=== PATIENT | female | born 1945 | race Caucasian/White ===

== ENCOUNTER 2017-01-18 19:33 | Emergency (ER) | payer MEDICARE, BC ==
[2017-01-18 20:53] VITALS: BP 159/71
[2017-01-18] MEDS ORDERED: Doxycycline 100 MG Cap PO ONE (21:16)
--- NOTE | 2017-01-18 21:18 | EDM.PDOC ---
[id number]: DEER TICK Time Seen by Provider: 01/18/17 21:00 Source of Information: Reports: Patient History Limitations: Reports: No Limitations - History of Present Illness INITIAL COMMENTS - FREE TEXT/NARRATIVE: 71-year-old female found a tick on her right lateral abdomen this evening, tried to remove it but the head is still attached and there is a small amount of redness. She's had Lyme's disease "twice" and is very concerned. Onset: Today - Related Data Allergies Allergy/AdvReac Type Severity Reaction Status Date / Time tetanus toxoid, adsorbed Allergy Cannot Verified 06/13/14 11:30 Remember lisinopril AdvReac Cough Verified 06/13/14 13:42 Home Meds: Home Meds Acetaminophen 650 mg PO DAILY PRN 06/10/14 [History] Alendronate [Fosamax] 70 mg PO Q7D 06/10/14 [History] Aspirin [Halfprin] 1 tab PO DAILY 06/10/14 [History] Metoprolol Succinate [Toprol XL] 25 mg PO DAILY 06/10/14 [History] Nitroglycerin [Nitrostat] 0.4 mg SL ASDIRECTED 06/10/14 [History] atorvaSTATin [Lipitor] 20 mg PO BEDTIME 06/10/14 [History] Propylene Glycol [Systane Balance] 1 - 2 drop EYEBOTH DAILY PRN 06/13/14 [ History] Calcium Carbonate [Tums] 1,000 mg PO Q6HR #100 tab.chew 06/15/14 [Rx] Past Medical History HEENT History: Reports: Other (See Below) Other HEENT History: dry eyes Cardiovascular History: Reports: Hypertension, Stents Gastrointestinal History: Reports: PUD, Other (See Below) Other Gastrointestinal History: perforated ulcer 1995 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: Musculoskeletal History: Reports: Fracture Other Musculoskeletal History: fx bilateral wrists Endocrine/Metabolic History: Reports: Hyperparathyroidism, Other (See Below) Other Endocrine/Metabolic History: removed parathyroid - Infectious Disease History Infectious Disease History: Reports: Chicken Pox, Measles, Mumps - Past Surgical History Cardiovascular Surgical History: Reports: Coronary Artery Stent Social & Family History - Tobacco Use Smoking Status *Q: Never Smoker Years of Tobacco use: 4 Used Tobacco, but Quit: Yes Month Tobacco Last Used: 0 Second Hand Smoke Exposure: No - Caffeine Use Caffeine Use: Reports: None - Alcohol Use Days Per Week of Alcohol Use: 1 Number of Drinks Per Day: 1 Total Drinks Per Week: 1 - Recreational Drug Use Recreational Drug Use: No ED ROS GENERAL - Review of Systems Review Of Systems: See Below Constitutional: Denies: Fever, Chills Respiratory: Denies: Shortness of Breath, Cough Cardiovascular: Denies: Chest Pain GI/Abdominal: Denies: Nausea Skin: Reports: Wound (Bite wound from the tick with a small amount of redness) Neurological: Reports: No Symptoms Psychiatric: Reports: No Symptoms ED EXAM, ANIMAL BITE - Physical Exam Exam: See Below Exam Limited By: No Limitations General Appearance: Alert, No Apparent Distress Respiratory/Chest: No Respiratory Distress Neurological: Alert, Oriented Skin Exam: Other (Patient has a small remainder of the tick embedded in her right lateral abdomen over a small erythematous spot) Course - Vital Signs Last Recorded V/S: Last Vital Signs Temp 96.8 F 01/18/17 20:51 Pulse 84 01/18/17 20:51 Resp 16 01/18/17 20:51 BP 159/71 H 01/18/17 20:51 Pulse Ox 95 01/18/17 20:51 - Orders/Labs/Meds Meds: Medications Discontinued Medications Generic Name Dose Route Start Last Admin Trade Name Gregoryq PRN Reason Stop Dose Admin Doxycycline Hyclate 200 mg 01/18/17 21:16 01/18/17 21:21 Vibramycin PO 01/18/17 21:17 200 mg ONETIME ONE Administration - Re-Assessments/Exams Free Text/Narrative Re-Assessment/Exam: 01/18/17 21:16 Bruising of fine tweezers the remainder of the tick was removed. Patient was given 200 mg of by mouth doxycycline but no further treatment is needed. She can return as needed if concerns. Departure - Departure Time of Disposition: 21:26 Disposition: Home, Self-Care 01 Condition: good Clinical Impression: Tick bite of abdomen Qualifiers: Encounter type: initial encounter Qualified Code(s): S30.861A - Insect bite ( nonvenomous) of abdominal wall, initial encounter - Discharge Information Instructions: Insect Bite, [id number] Referrals: Saba Jacobs [employer] [Primary Care Provider] - Forms: ED Department Discharge Care Plan Goals: Keep area clean while healing. You may experience an increase in redness temporarily, return if concerns of not healing satisfactorily.
== END 2017-01-18 21:27 | disposition home or self-care (01) ==
LOC: JP.ED 19:33
DX: S30.861A Insect bite (nonvenomous) of abdominal wall, initial encounter (principal); I10 Essential (primary) hypertension; E21.3 Hyperparathyroidism, unspecified; Z95.5 Presence of coronary angioplasty implant and graft; Z79.82 Long term (current) use of aspirin; Z79.899 Other long term (current) drug therapy; Z88.8 Allergy status to other drugs, medicaments and biological substances; W57.XXXA Bitten or stung by nonvenomous insect and other nonvenomous arthropods, initial encounter
CPT/HCPCS: 99283; A9270

== ENCOUNTER 2017-05-19 05:51 | Day surgery (SDC) | payer MEDICARE, BC ==
[2017-05-19] MEDS ORDERED: Dextrose 5%-Lactated Ringers 1,000 ML IV SCH (06:30)
[2017-05-19] MEDS ORDERED: Glycopyrrolate 0.2 MG/ML 2 ML SDV IVPUSH ONE (07:15)
[2017-05-19] MEDS ORDERED: Propofol 200 MG/20 ML SDV ONE (07:19)
[2017-05-19] MEDS ORDERED: fentaNYL 100 MCG/2 ML SDV ONE (07:20)
[2017-05-19] MEDS ORDERED: Midazolam 1 MG/ML 2 ML SDV ONE (07:20)
[2017-05-19] MEDS ORDERED: Pantoprazole 40 MG Vial IVPUSH ONE (08:00)
[2017-05-19 09:51] VITALS: BP 118/79
--- NOTE | 2017-05-24 16:00 | OR ---
DATE OF PROCEDURE: 05/19/2017 PREOPERATIVE DIAGNOSES: 1. Irritation referable to hypopharynx. 2. Indication for screening colonoscopy. POSTOPERATIVE DIAGNOSES: 1. Throat irritation associated with normal hypopharynx and larynx. 2. Gastroesophageal reflux disease (single linear ulcer at the EG junction). 3. Mild duodenitis. 4. Normal colonoscopic examination. OPERATIVE PROCEDURE: 1. Esophagogastroduodenoscopy with:. a. Biopsies of antrum for CLOtest. b. Biopsies of esophagogastric junction for histologic evaluation. 2. Colonoscopy. ANESTHESIA: IV sedation. INDICATIONS FOR PROCEDURE: A 72-year-old presenting with some ongoing sense of irritation in the hypopharyngeal area, was not associated with dysphagia per se. She does not report obvious gastroesophageal reflux symptoms and is not on any antisecretory medications. The patient also meets indications for screening colonoscopy. Plan is to proceed with an upper and lower endoscopy with biopsies and/or polypectomies as indicated. Potential risks including bleeding and perforation were discussed and the patient wishes to proceed. DETAILS OF PROCEDURE: The patient was taken to the operating room and placed in a left lateral decubitus position. IV sedation was administered after which the upper GI endoscope was passed orally through the length of the esophagus into the stomach with retroflexion view of the fundus, thereafter through the pyloric channel and into the proximal duodenum. Findings included a normal hypopharynx and larynx and upper esophageal sphincter. Esophageal body was likewise unremarkable. At the EG junction, there was a small hiatal hernia. There was some inflammation and friability and a single thin linear ulcer present all consistent with gastroesophageal reflux disease. There was no stricturing, plaquing, or other signs of neoplasia. Within the stomach, apart from the small hiatal hernia, proximal stomach was unremarkable. There was some mild redness within the duodenum which extended just to the length of the duodenal bulb, the remainder of the duodenum being unremarkable. The scope was then withdrawn back into the abdomen. Biopsies were obtained from the antrum and sent for CLOtest for H. pylori and then multiple biopsies were obtained from esophagogastric junction, sent for histologic evaluation. Minimal bleeding from the biopsy sites was seen. Of note, there was no gross upward extension of the gastroesophageal junction, mucosal line, i.e. no gross evidence of Goldman esophagus. The scope was withdrawn and the upper endoscopic procedure was then concluded. The patient was then prepared for the colonoscopy. Initial digital rectal exam was performed and was unremarkable. Colonoscope was then passed into the rectum with retroflexion revealing uncomplicated hemorrhoidal columns. The scope was then passed eventually to the level of the cecum. The prep was fairly good with there only being a small amount of liquid stool present. To that level, no abnormalities were noted. Specifically, there were no areas of diverticulosis, no areas of colitis, and no polyps or other signs of neoplasia. The scope was then withdrawn, the above findings reconfirmed, and the procedure concluded. The patient was taken to the recovery room in satisfactory condition. The plan will be to give the patient Protonix 40 mg IV in the recovery room and then begin Protonix 40 mg a day. She will be then set up to see KIET Hardwick in roughly 1 month to see if the treatment of gastroesophageal reflux disease helps with throat irritation. If no significant improvement is noted, one might consider ENT referral at that time. Marc Velazquez MD /[id number]
== END 2017-05-19 10:40 | disposition home or self-care (01) ==
LOC: JP.SDS 05:51
PROVIDERS: ATTEND Surgery
DX: Z12.11 Encounter for screening for malignant neoplasm of colon (principal); K29.80 Duodenitis without bleeding; K44.9 Diaphragmatic hernia without obstruction or gangrene; K21.9 Gastro-esophageal reflux disease without esophagitis; Z88.8 Allergy status to other drugs, medicaments and biological substances
CPT/HCPCS: 43239; 87081; 88305; C9113; G0121; J2250; J2704; J3010; J7042; J3490

== ENCOUNTER 2017-07-06 10:19 | Emergency (ER) | payer MEDICARE, BC ==
[2017-07-06 13:08] VITALS: BP 147/106
--- NOTE | 2017-07-06 13:52 | EDM.PDOC ---
ED HPI GENERAL MEDICAL PROBLEM - General Chief Complaint: Abdominal Pain Stated Complaint: LEFT SIDE PAIN AND GOES INTO BACK Time Seen by Provider: 07/06/17 10:55 Source of Information: Reports: Patient History Limitations: Reports: No Limitations - History of Present Illness INITIAL COMMENTS - FREE TEXT/NARRATIVE: PT DEVELOPED ACUTE PAIN IN THE LEFT LOWER ABDOMAN. sHE HAD A NORMAL BM YESTERDAY NON TODAY. sHE HAS NOT VOMITED. tHE PAIN DOES RADIATE TO HER FLANK AREA. sHE DID HAVE A COLONOSCOPY 2 WEEKS AGO. sHE STATES SHE WAS TOLD THIS WAS OK. Onset: Gradual, Other ( STARTED SOME YESTERDAY WORSE TODAY. iT IS NOT REAL TENDER WHEN IT IS PUSHED ON. sHE HAS NO DYSURIA. ) Duration: Hour(s): Location: Reports: Abdomen Associated Symptoms: Reports: Other ( NO OTHER SYMPTOMS) Left Lower Abdominal Pain Score (Numeric/FACES): 6 - Related Data Allergies Allergy/AdvReac Type Severity Reaction Status Date / Time tetanus toxoid, adsorbed Allergy Cannot Verified 05/19/17 06:06 Remember lisinopril AdvReac Cough Verified 05/19/17 06:06 Home Meds: Home Meds Acetaminophen 650 mg PO DAILY PRN 06/10/14 [History] Alendronate [Fosamax] 70 mg PO Q7D 06/10/14 [History] Aspirin [Halfprin] 81 mg PO DAILY 06/10/14 [History] Metoprolol Succinate [Toprol XL] 25 mg PO DAILY 06/10/14 [History] Nitroglycerin [Nitrostat] 0.4 mg SL ASDIRECTED 06/10/14 [History] atorvaSTATin [Lipitor] 20 mg PO BEDTIME 06/10/14 [History] Propylene Glycol [Systane Balance] 1 - 2 drop EYEBOTH DAILY PRN 06/13/14 [ History] Calcium Carbonate [Tums] 1,000 mg PO Q6HR #100 tab.chew 06/15/14 [Rx] Cholecalciferol (Vitamin D3) [Vitamin D3] 5,000 unit PO DAILY 05/15/17 [History] Multivitamin [Multiple Vitamins] 1 tab PO DAILY 05/15/17 [History] Past Medical History HEENT History: Reports: Other (See Below) Other HEENT History: dry eyes Cardiovascular History: Reports: Hypertension, Stents Gastrointestinal History: Reports: PUD, Other (See Below) Other Gastrointestinal History: perforated ulcer 1995 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: Musculoskeletal History: Reports: Fracture Other Musculoskeletal History: fx bilateral wrists Endocrine/Metabolic History: Reports: Hyperparathyroidism, Other (See Below) Other Endocrine/Metabolic History: removed parathyroid - Infectious Disease History Infectious Disease History: Reports: Chicken Pox, Mumps - Past Surgical History Cardiovascular Surgical History: Reports: Coronary Artery Stent GI Surgical History: Reports: Colonoscopy Social & Family History - Family History Family Medical History: Noncontributory - Tobacco Use Smoking Status *Q: Never Smoker Years of Tobacco use: 4 Used Tobacco, but Quit: Yes Month Tobacco Last Used: 0 Second Hand Smoke Exposure: No - Caffeine Use Caffeine Use: Reports: None - Alcohol Use Days Per Week of Alcohol Use: 1 Number of Drinks Per Day: 1 Total Drinks Per Week: 1 - Recreational Drug Use Recreational Drug Use: No ED ROS GENERAL - Review of Systems Review Of Systems: See Below Constitutional: Reports: No Symptoms HEENT: Reports: No Symptoms Respiratory: Reports: No Symptoms Cardiovascular: Reports: No Symptoms Endocrine: Reports: No Symptoms GI/Abdominal: Reports: Abdominal Pain, Other (PT STATES SHE IS NOT VERY UNCOMFORTABLE WHEN SHE IS PUSHED ON. ) : Reports: No Symptoms, Flank Pain Musculoskeletal: Reports: No Symptoms Skin: Reports: No Symptoms Neurological: Reports: No Symptoms ED EXAM, GI/ABD - Physical Exam Exam: See Below Text/Narrative:: pt has had left sided abdomanal pain which has been waxing and waning. sHe had a neg colonoscopy 2 weeks ago. Pt is not nauseated and she has been having normal bms. She has not fallen or injured herself. Exam Limited By: No Limitations General Appearance: Alert, Mild Distress Ears: Normal TMs Nose: Normal Inspection Throat/Mouth: Normal Inspection Head: Atraumatic Neck: Normal Inspection Respiratory/Chest: No Respiratory Distress Cardiovascular: Regular Rate, Rhythm GI/Abdominal Exam: Soft, Other (pt has cva tenderness. She is very tender in the muscle in the lrft cva area. ) (Female) Exam: Deferred Rectal (Female) Exam: Deferred Back Exam: Normal Inspection Extremities: Normal Inspection Course - Vital Signs Last Recorded V/S: Last Vital Signs Temp 36.5 C 07/06/17 10:54 Pulse 82 07/06/17 12:45 Resp 16 07/06/17 12:45 BP 147/106 H 07/06/17 12:45 Pulse Ox 98 07/06/17 12:45 - Orders/Labs/Meds Labs: Laboratory Tests 07/06/17 07/06/17 07/06/17 Range/Units 13:13 13:13 13:47 WBC 6.8 (4.5-11.0) K/uL RBC 4.68 (3.30-5.50) M/uL Hgb 14.6 (12.0-15.0) g/dL Hct 43.4 (36.0-48.0) % MCV 93 (80-98) fL MCH 31 (27-31) pg MCHC 34 (32-36) % Plt Count 274 (150-400) K/uL Neut % (Auto) 58 (36-66) % Lymph % (Auto) 31 (24-44) % Mckenzie % (Auto) 8 H (2-6) % Eos % (Auto) 2 (2-4) % Baso % (Auto) 1 (0-1) % Sodium 139 L (140-148) mmol/L Potassium 4.6 (3.6-5.2) mmol/L Chloride 105 (100-108) mmol/L Carbon Dioxide 27 (21-32) mmol/L Anion Gap 11.6 (5.0-14.0) mmol/L BUN 19 H (7-18) mg/dL Creatinine 1.1 H (0.6-1.0) mg/dL Est Cr Clr Drug Dosing 38.80 mL/min Estimated GFR (MDRD) 49 L (>60) Glucose 100 (74-106) mg/dL Calcium 9.3 (8.5-10.1) mg/dL Total Bilirubin 0.9 (0.2-1.0) mg/dL AST 19 (15-37) U/L ALT 25 (12-78) U/L Alkaline Phosphatase 58 (46-116) U/L Total Protein 7.1 (6.4-8.2) g/dL Albumin 4.0 (3.4-5.0) g/dL Globulin 3.1 (2.3-3.5) g/dL Albumin/Globulin Ratio 1.3 (1.2-2.2) Urine Color Yellow Urine Appearance Clear Urine pH 6.5 (4.5-8.0) Ur Specific [place] 1.005 L (1.008-1.030) Urine Protein Negative (NEGATIVE) mg/dL Urine Glucose (UA) Normal (NEGATIVE) mg/dL Urine Ketones Negative (NEGATIVE) mg/dL Urine Occult Blood Negative (NEGATIVE) Urine Nitrite Negative (NEGATIVE) Urine Bilirubin Negative (NEGATIVE) Urine Urobilinogen Normal (NORMAL) mg/dL Ur Leukocyte Esterase Small (NEGATIVE) Urine RBC 0-5 (0-5) Urine WBC 0-5 (0-5) Ur Epithelial Cells Rare Amorphous Sediment Few Urine Bacteria Few Urine Mucus Few Meds: Medications Discontinued Medications Generic Name Dose Route Start Last Admin Trade Name Freq PRN Reason Stop Dose Admin Sodium Chloride 80 mls @ 3.5 mls/sec 07/06/17 15:00 07/06/17 15:07 Normal Saline IV 3.5 mls/sec ASDIRECTED SAMIA Administration Iopamidol 100 ml 07/06/17 14:52 07/06/17 15:08 Isovue-300 (61%) IV 07/07/17 14:53 100 ml . DIRECTED PRN Administration RADIOLOGY EXAM Ketorolac Tromethamine 60 mg 07/06/17 16:00 07/06/17 16:18 Toradol IM 07/06/17 16:01 Not Given ONETIME ONE Sodium Chloride 10 ml 07/06/17 14:52 07/06/17 15:07 Saline Flush FLUSH 07/06/17 14:53 10 ml ONETIME ONE Administration - Re-Assessments/Exams Free Text/Narrative Re-Assessment/Exam: 07/06/17 16:11 Lab work looked normal. She was very tender in the left cva area. Pt is very concerned about this tenderness. 07/06/17 16:12 A cat scan of the abdoman was neg. , She will be treated as muscle pain. Departure - Departure Time of Disposition: 16:03 Disposition: Home, Self-Care 01 Condition: Fair Clinical Impression: Muscle pain, lumbar - Discharge Information Instructions: Muscle Pain, Adult Referrals: Saba Jacobs NP [Primary Care Provider] - Forms: ED Department Discharge Care Plan Goals: rest, moist warm packs to the area, flexeril 10 mg hs, motrin 600mg q6h as needed for [pain
[2017-07-06] MEDS ORDERED: Sodium Chloride 0.9% 10 ML Syringe FLUSH ONE (14:52)
[2017-07-06] MEDS ORDERED: Iopamidol 612 MG/ML 100 ML Bottle IV PRN (14:52)
[2017-07-06] MEDS ORDERED: Sodium Chloride 0.9% 80 ML IV SCH (15:00)
[2017-07-06] MEDS ORDERED: Ketorolac 60 MG/2 ML SDV IM ONE (16:00)
== END 2017-07-06 16:18 | disposition home or self-care (01) ==
LOC: JP.ED 10:19
DX: M54.5 Low back pain (principal); I10 Essential (primary) hypertension; Z88.8 Allergy status to other drugs, medicaments and biological substances; Z79.899 Other long term (current) drug therapy; Z79.82 Long term (current) use of aspirin
CPT/HCPCS: 36415; 74177; 80053; 81001; 85025; 99284; J7030; J7050; Q9967; 99283

== ENCOUNTER 2019-04-14 20:31 | Emergency (ER) | payer MEDICARE, BC ==
[2019-04-14 21:00] VITALS: BP 159/97
[2019-04-14] MEDS: Bacitracin Oint 1 GM U/D Packet TOP ONE (21:40)
--- NOTE | 2019-04-14 21:42 | EDM.PDOC ---
ED HPI GENERAL MEDICAL PROBLEM - General Chief Complaint: ENT Problem Stated Complaint: ISSUES STOPPING NOSE BLEED Time Seen by Provider: 04/14/19 21:17 Source of Information: Reports: Patient History Limitations: Reports: No Limitations - History of Present Illness INITIAL COMMENTS - FREE TEXT/NARRATIVE: This lady is here for a nosebleed. It's happened a few times today from the left nostril after blowing her nose. Cough recently. Takes asa. 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: Other (see below) Other 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 AWAY: none - Related Data Allergies Allergy/AdvReac Type Severity Reaction Status Date / Time tetanus toxoid, adsorbed Allergy Cannot Verified 05/19/17 06:06 Remember lisinopril AdvReac Cough Verified 05/19/17 06:06 Home Meds: Home Meds Acetaminophen 650 mg PO DAILY PRN 06/10/14 [History] Alendronate [Fosamax] 70 mg PO Q7D 06/10/14 [History] Metoprolol Succinate [Toprol XL] 25 mg PO DAILY 06/10/14 [History] Nitroglycerin [Nitrostat] 0.4 mg SL ASDIRECTED 06/10/14 [History] atorvaSTATin [Lipitor] 20 mg PO BEDTIME 06/10/14 [History] Propylene Glycol [Systane Balance] 1 - 2 drop EYEBOTH DAILY PRN 06/13/14 [ History] Calcium Carbonate [Tums] 1,000 mg PO Q6HR #100 tab.chew 06/15/14 [Rx] Cholecalciferol (Vitamin D3) [Vitamin D3] 5,000 unit PO DAILY 05/15/17 [History] Multivitamin [Multiple Vitamins] 1 tab PO DAILY 05/15/17 [History] Aspirin 325 mg PO DAILY 04/14/19 [History] Past Medical History HEENT History: Reports: Other (See Below) Other HEENT History: dry eyes Cardiovascular History: Reports: Hypertension, Stents Gastrointestinal History: Reports: PUD, Other (See Below) Other Gastrointestinal History: perforated ulcer 1995 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: Musculoskeletal History: Reports: Fracture Other Musculoskeletal History: fx bilateral wrists Endocrine/Metabolic History: Reports: Hyperparathyroidism, Other (See Below) Other Endocrine/Metabolic History: removed parathyroid - Infectious Disease History Infectious Disease History: Reports: Chicken Pox, Mumps - Past Surgical History Cardiovascular Surgical History: Reports: Coronary Artery Stent GI Surgical History: Reports: Colonoscopy Social & Family History - Family History Family Medical History: Noncontributory - Tobacco Use Smoking Status *Q: Former Smoker Years of Tobacco use: 2 Used Tobacco, but Quit: Yes Month/Year Tobacco Last Used: 1959 - Caffeine Use Caffeine Use: Reports: Soda Caffeine Use Comment: occasional soda, approximately 4 per month - Recreational Drug Use Recreational Drug Use: No ED ROS ENT - Review of Systems Review Of Systems: ROS reveals no pertinent complaints other than HPI. ED EXAM, ENT - Physical Exam Exam: See Below Exam Limited By: No Limitations General Appearance: Alert, WD/WN Nose: Other (No active bleeding left septum ok but some dryness and irritation to inferior turbinate.) Course - Vital Signs Last Recorded V/S: Last Vital Signs Temp 35.8 C 04/14/19 21:10 Pulse 101 H 04/14/19 21:10 Resp 16 04/14/19 21:10 BP 159/97 H 04/14/19 21:10 Pulse Ox 98 04/14/19 21:10 - Orders/Labs/Meds Meds: Medications Discontinued Medications Generic Name Dose Route Start Last Admin Trade Name Eneida PRN Reason Stop Dose Admin Bacitracin 1 dose 04/14/19 21:17 Bacitracin Oint 1 Gm TOP 04/14/19 21:18 ONETIME ONE - Re-Assessments/Exams Free Text/Narrative Re-Assessment/Exam: 04/14/19 21:40 bacitracin ointment masaged into left nares. Departure - Departure Time of Disposition: 21:41 Disposition: Home, Self-Care 01 Condition: Fair Clinical Impression: Epistaxis - Discharge Information Referrals: Lakia Preciado MD [Primary Care Provider] - Additional Instructions: Try massaging either antibiotic ointment or even just plain old vaseline into the nostril 2 or 3 times daily. This will keep it moist and may help prevent bleeding.
== END 2019-04-14 21:45 | disposition home or self-care (01) ==
LOC: JP.ED 20:31
DX: R04.0 Epistaxis (principal); I10 Essential (primary) hypertension; E21.3 Hyperparathyroidism, unspecified; Z88.7 Allergy status to serum and vaccine; Z88.8 Allergy status to other drugs, medicaments and biological substances; Z79.899 Other long term (current) drug therapy; Z87.891 Personal history of nicotine dependence
CPT/HCPCS: 99282

== ENCOUNTER 2023-05-28 20:25 | Emergency (ER) | payer MEDICARE, BC ==
[2023-05-28] MEDS ORDERED: Sodium Chloride 0.9% 10 ML Syringe FLUSH PRN (20:40)
[2023-05-28 20:55] LABS: BASOPHILS ABSOLUTE AUTO 0.05 K/uL (0.00-0.10); BASOPHILS PERCENT AUTO 0.8 % (0.1-1.3); EOSINOPHILS ABSOLUTE AUTO 0.14 K/uL (0.00-0.40); EOSINOPHILS PERCENT AUTO 2.3 % (0.0-5.4); HEMATOCRIT 40.7 % (34.3-46.0); HEMOGLOBIN 13.6 g/dL (11.2-15.5); IMMATURE GRAN PERCENT AUTO 0.2 % (0.0-0.7); LYMPHOCYTES ABSOLUTE AUTO 2.02 K/uL (0.8-3.3); LYMPHOCYTES PERCENT AUTO 32.5 % (11.4-47.7); MEAN CORPUSCULAR HEMOGLOBIN 31.7 pg (31.6-35.5); MEAN CORPUSCULAR HGB CONC 33.4 g/dL (31.6-35.5); MEAN CORPUSCULAR VOLUME 94.9 fL (81.4-99.0); MONOCYTES ABSOLUTE AUTO 0.43 K/uL (0.20-0.90); MONOCYTES PERCENT AUTO 6.9 % (3.3-12.6); NEUTROPHILS ABSOLUTE AUTO 3.56 K/uL (1.0-7.6); NEUTROPHILS PERCENT AUTO 57.3 % (40.0-78.1); PLATELET COUNT,PLT 229 K/uL (130-375); RED BLOOD CELL COUNT 4.29 M/uL (3.77-5.24); WHITE BLOOD CELL COUNT,WBC 6.2 K/uL (3.2-11.0)
[2023-05-28 20:57] LABS: IMMATURE GRAN ABSOLUTE AUTO 0.01 K/uL (0.00-0.23)
[2023-05-28 21:22] LABS: A/G RATIO 1.4 (1.2-2.2); ALANINE AMINOTRANSFERASE,ALT 25 U/L (12-78); ALBUMIN 3.8 g/dL (3.4-5.0); ALKALINE PHOSPHATASE 62 U/L (46-116); ANION GAP 12.2 mmol/L (5.0-14.0); ASPARTATE AMNIOTRANSFERASE,AST 15 U/L (15-37); BILIRUBIN TOTAL 0.7 mg/dL (0.2-1.0); BLOOD UREA NITROGEN,BUN 24 mg/dL (7-18); C-REACTIVE PROTEIN < 0.05 mg/dL (0.0-0.3); CALCIUM 8.7 mg/dL (8.5-10.1); CARBON DIOXIDE,CO2 28 mmol/L (21-32); CHLORIDE,CL 101 mmol/L (100-108); CREATININE 1.1 mg/dL (0.6-1.0); EST CRCL DRUG DOSING (CG) 35.43 mL/min; ESTIMATED GFR 52 mL/min (>60); GLUCOSE RANDOM 131 mg/dL (74-106); POTASSIUM,K 4.2 mmol/L (3.6-5.2); PRO B-TYPE NATRIUR PEPT,BNPPRO 147 pg/mL (5-450); PROTEIN TOTAL,TP 6.6 g/dL (6.4-8.2); SODIUM,NA 137 mmol/L (140-148); TROPONIN I HIGH SENSITIVITY 25.4 pg/mL (<=60.3)
[2023-05-28 21:43] VITALS: BP 144/71; PULSE 67
== END 2023-05-28 21:47 | disposition home or self-care (01) ==
LOC: JP.ED 20:25
DX: R07.89 Other chest pain (principal); I10 Essential (primary) hypertension; Z95.5 Presence of coronary angioplasty implant and graft; Z79.82 Long term (current) use of aspirin; Z79.899 Other long term (current) drug therapy; Z88.8 Allergy status to other drugs, medicaments and biological substances; Z88.7 Allergy status to serum and vaccine
CPT/HCPCS: 36415; 80053; 83880; 84484; 85025; 85730; 86140; 93005; 99285

== ENCOUNTER 2023-06-18 07:36 | Day surgery (SDC) | payer MEDICARE, BC ==
[2023-06-18 07:49] VITALS: BP 138/63; PULSE 76
[2023-06-18] MEDS ORDERED: Lactated Ringers 1,000 ML IV SCH (08:15)
[2023-06-18] MEDS ORDERED: Propofol 200 MG/20 ML SDV ONE (10:03)
[2023-06-18] MEDS ORDERED: fentaNYL 50 MCG/ML SDV ONE (10:03)
== END 2023-06-18 10:23 | disposition home or self-care (01) ==
LOC: JP.SDS 07:36
PROVIDERS: ATTEND Student in an Organized Health Care Education/Training Program
DX: K21.9 Gastro-esophageal reflux disease without esophagitis (principal); Z53.9 Procedure and treatment not carried out, unspecified reason; I10 Essential (primary) hypertension; Z95.828 Presence of other vascular implants and grafts
CPT/HCPCS: J2704; J3010; J7120

== ENCOUNTER 2024-11-22 08:59 | Day surgery (SDC) | payer MEDICARE, BC ==
[2024-11-22] MEDS: Lactated Ringers 1,000 ML IV SCH (09:47)
[2024-11-22] MEDS ORDERED: Propofol 200 MG/20 ML SDV ONE (09:56)
[2024-11-22 12:04] VITALS: BP 157/69; PULSE 64
== END 2024-11-22 12:20 | disposition home or self-care (01) ==
LOC: JP.SDS 08:59
PROVIDERS: ATTEND Surgery
DX: R10.9 Unspecified abdominal pain (principal); K22.89 Other specified disease of esophagus; K21.9 Gastro-esophageal reflux disease without esophagitis; I10 Essential (primary) hypertension
CPT/HCPCS: 00731; 43239; J2704; J7120